=== PATIENT | female | born 1980 | race Caucasian/White ===

== ENCOUNTER 2016-11-26 10:01 | Emergency (ER) | payer SELFPAY ==
[2016-11-26] MEDS ORDERED: ONDANSETRON PF 4 MG/2 ML VIAL. IV ONE (10:30)
[2016-11-26] MEDS ORDERED: IV NORMAL SALINE 1000ML BAG 1,000 ML IV SCH (10:30)
[2016-11-26 10:39] LABS: BILIRUBIN,URINE NEGATIVE (NEG); GLUCOSE,URINE NEGATIVE (NEG); NITRITE,URINE NEGATIVE (NEG); PROTEIN,URINE 100 mg/dL (NEG-TRACE); UROBILINOGEN,URINE 0.2 mg/dL (0.2 mg/dL)
[2016-11-26 10:46] LABS: BASO % 0 % (0-3); EOS % 0 % (0-3); HEMATOCRIT 41.4 % (36.0-47.0); HEMOGLOBIN 14.2 g/dL (12.0-15.5); LYMPH # 1.3 x10^3/uL (1.0-4.8); LYMPH % 10 % (24-48); MEAN CORPUSCULAR HEMOGLOBIN 33 pg (25-35); MEAN CORPUSCULAR HGB CONC 34 g/dL (31-37); MEAN CORPUSCULAR VOLUME 95 fL (79-100); MONO % 10 % (0-9); NEUT % 80 % (31-73); PLATELET COUNT 424 x10^3/uL (140-400); RED BLOOD COUNT 4.35 x10^6/uL (3.50-5.40); RED CELL DISTRIBUTION WIDTH 12.7 % (11.5-14.5); WHITE BLOOD COUNT 13.6 x10^3/uL (4.0-11.0)
[2016-11-26 10:56] LABS: CALCIUM 10.3 mg/dL (8.5-10.1); CREATININE 0.7 mg/dL (0.6-1.0); GFR 95.2; POTASSIUM 3.5 mmol/L (3.5-5.1)
[2016-11-26 11:00] LABS: BACTERIA,URINE MANY /HPF (0-FEW); RBC,URINE 0 /HPF (0-2); SQUAMOUS EPITHELIAL CELL,UR FEW /LPF; WBC,URINE >40 /HPF (0-4)
[2016-11-26 11:01] LABS: ALBUMIN 3.3 g/dL (3.4-5.0); DIRECT BILIRUBIN 0.2 mg/dL (0.0-0.2); MAGNESIUM 2.5 mg/dL (1.8-2.4); TOTAL BILIRUBIN 0.6 mg/dL (0.2-1.0); TOTAL PROTEIN 8.4 g/dL (6.4-8.2)
--- NOTE | 2016-11-26 11:05 | PHYS DOC ---
Past Medical History Past Medical History: Other Additional Past Medical Histor: CHRONIC BACK PAIN,KIDNEY STONES,BREAST AUGMENTATION Past Surgical History: Alcohol Use: Occasionally Drug Use: None Adult General Chief Complaint Chief Complaint: ABDOMINAL PAIN HPI HPI Patient is a 36 year old female who presents with coming diarrhea. She states her symptoms started about 2 weeks ago and she thought she had a UTI and she took Bactrim from her joint about 4 doses of this and then she developed severe abdominal pain and felt like she is having a reaction from her Bactrim. She stopped that and her symptoms just about resolved until 5 days ago when she started having nausea vomiting and diarrhea. She states this morning she's had 4-5 loose stools and this last night checked about 8 nonbloody nonbilious episodes of vomiting. She states she has crampy abdominal pain that started from vomiting. She states she feels like she is just sore all over secondary to vomiting. She states last week she had a fever 102 however this morning is in the 99 range. She denies any allergies or any abdominal surgeries , she did have a but denies any vaginal discharge and is finishing her period. Review of Systems Review of Systems Constitutional: Denies fever or chills [] Eyes: Denies change in visual acuity, redness, or eye pain [] HENT: Denies nasal congestion or sore throat [] Respiratory: Denies cough or shortness of breath [] Cardiovascular: No additional information not addressed in HPI [] GI: Denies abdominal pain, bloody stools, positive for nausea, vomiting and diarrhea [] : Denies dysuria or hematuria [] Musculoskeletal: Denies back pain or joint pain [] Integument: Denies rash or skin lesions [] Neurologic: Denies headache, focal weakness or sensory changes [] Endocrine: Denies polyuria or polydipsia [] Current Medications Current Medications Current Medications Medications (Trade) Dose Ordered Sig/Whitley Start Time Stop Time Status Last Admin Dose Admin Ceftriaxone Sodium 50 ml @ 100 mls/hr 1X ONCE 11/26/16 12:30 11/26/16 12:59 DC 11/26/16 12:52 100 MLS/HR Fentanyl Citrate (Fentanyl 2ml Vial) 25 mcg PRN Q15MIN PRN 11/26/16 11:45 11/27/16 11:44 11/26/16 12:21 25 MCG Info (Do NOT chart on this entry -- for MONITORING) 1 each PRN DAILY PRN 11/26/16 12:45 11/28/16 12:44 Iohexol (Omnipaque 300 Mg/ml) 75 ml 1X ONCE 11/26/16 12:30 11/26/16 12:31 DC Ondansetron HCl (Zofran) 4 mg 1X ONCE 11/26/16 10:30 11/26/16 10:37 DC 11/26/16 10:46 4 MG Promethazine HCl 25 mg/Sodium Chloride 51 ml @ 101 mls/hr 1X ONCE 11/26/16 12:15 11/26/16 12:45 DC 11/26/16 12:15 101 MLS/HR Sodium Chloride 1,000 ml @ 1,000 mls/hr Q1H 11/26/16 10:30 11/26/16 11:54 DC 11/26/16 10:46 1,000 MLS/HR Allergies Allergies Allergies Coded Allergies Type Severity Reaction Last Updated Verified No Known Drug Allergies 11/26/16 No Physical Exam Physical Exam Constitutional: Well developed, well nourished, no acute distress, non-toxic appearance. [] HENT: Normocephalic, atraumatic, bilateral external ears normal, oropharynx moist, no oral exudates, nose normal. [] Eyes: PERRLA, EOMI, conjunctiva normal, no discharge. [] Neck: Normal range of motion, no tenderness, supple, no stridor. [] Cardiovascular:Heart rate regular rhythm, no murmur [] Lungs & Thorax: Bilateral breath sounds clear to auscultation [] Abdomen: Bowel sounds normal, soft, mild tender palpation diffusely, no rebound or guarding no masses, no pulsatile masses. [] Skin: Warm, dry, no erythema, no rash. [] Back: No tenderness, no CVA tenderness. [] Extremities: No tenderness, no cyanosis, no clubbing, ROM intact, no edema. [] Neurologic: Alert and oriented X 3, normal motor function, normal sensory function, no focal deficits noted. [] Psychologic: Affect normal, judgement normal, mood normal. [] Current Patient Data Vital Signs Vital Signs Date Time Temp Pulse Resp B/P (MAP) Pulse Ox O2 Delivery O2 Flow Rate FiO2 11/26/16 12:23 92 163/83 (109) 96 Room Air 11/26/16 10:19 99.6 16 99.6 Lab Values Laboratory Tests Test 11/26/16 09:26 11/26/16 10:13 11/26/16 10:30 POC Urine HCG, Qualitative Hcg negative (Negative) Urine Collection Type Unknown Urine Color [place] Urine Clarity Cloudy Urine pH 6.0 Urine Specific [place] 1.020 Urine Protein 100 mg/dL (NEG-TRACE) Urine Glucose (UA) Negative mg/dL (NEG) Urine Ketones (Stick) Negative mg/dL (NEG) Urine Blood Moderate (NEG) Urine Nitrite Negative (NEG) Urine Bilirubin Negative (NEG) Urine Urobilinogen Dipstick 0.2 mg/dL (0.2 mg/dL) Urine Leukocyte Esterase Moderate (NEG) Urine RBC 0 /HPF (0-2) Urine WBC >40 /HPF (0-4) Urine Squamous Epithelial Cells Few /LPF Urine Bacteria Many /HPF (0-FEW) White Blood Count 13.6 x10^3/uL (4.0-11.0) H Red Blood Count 4.35 x10^6/uL (3.50-5.40) Hemoglobin 14.2 g/dL (12.0-15.5) Hematocrit 41.4 % (36.0-47.0) Mean Corpuscular Volume 95 fL (79-100) Mean Corpuscular Hemoglobin 33 pg (25-35) Mean Corpuscular Hemoglobin Concent 34 g/dL (31-37) Red Cell Distribution Width 12.7 % (11.5-14.5) Platelet Count 424 x10^3/uL (140-400) H Neutrophils (%) (Auto) 80 % (31-73) H Lymphocytes (%) (Auto) 10 % (24-48) L Monocytes (%) (Auto) 10 % (0-9) H Eosinophils (%) (Auto) 0 % (0-3) Basophils (%) (Auto) 0 % (0-3) Neutrophils # (Auto) 10.9 x10^3uL (1.8-7.7) H Lymphocytes # (Auto) 1.3 x10^3/uL (1.0-4.8) Monocytes # (Auto) 1.4 x10^3/uL (0.0-1.1) H Eosinophils # (Auto) 0.0 x10^3/uL (0.0-0.7) Basophils # (Auto) 0.0 x10^3/uL (0.0-0.2) Segmented Neutrophils % 73 % (35-66) H Band Neutrophils % 3 % (0-9) Lymphocytes % 14 % (24-48) L Monocytes % 10 % (0-10) Platelet Estimate Increased (ADEQUATE) Sodium Level 142 mmol/L (136-145) Potassium Level 3.5 mmol/L (3.5-5.1) Chloride Level 99 mmol/L (98-107) Carbon Dioxide Level 31 mmol/L (21-32) Anion Gap 12 (6-14) Blood Urea Nitrogen 16 mg/dL (7-20) Creatinine 0.7 mg/dL (0.6-1.0) Estimated GFR (Cockcroft-Gault) 95.2 Glucose Level 102 mg/dL (70-99) H Calcium Level 10.3 mg/dL (8.5-10.1) H Magnesium Level 2.5 mg/dL (1.8-2.4) H Total Bilirubin 0.6 mg/dL (0.2-1.0) Direct Bilirubin 0.2 mg/dL (0.0-0.2) Aspartate Amino Transferase (AST) 18 U/L (15-37) Alanine Aminotransferase (ALT) 34 U/L (14-59) Alkaline Phosphatase 160 U/L (46-116) H Creatine Kinase 17 U/L (26-192) L Creatine Kinase MB (Mass) < 0.5 ng/mL (0.0-3.6) Creatine Kinase MB Relative Index % (0-4) Total Protein 8.4 g/dL (6.4-8.2) H Albumin 3.3 g/dL (3.4-5.0) L Lipase 229 U/L (73-393) Laboratory Tests 11/26/16 10:30 Laboratory Tests 11/26/16 10:30 EKG EKG [] Radiology/Procedures Radiology/Procedures [facility] [address] [place], [place] [id number] IMAGING REPORT Signed PATIENT: KLEBER RIDDLE ACCOUNT: [id number] : 1980 LOCATION: ER AGE: 36 SEX: F EXAM STATUS: REG ER ORD. PHYSICIAN: JAZZY IVERSON MD REASON: abd pain PROCEDURE: CT ABD PELV W/ IV CONTRST ONLY CT abdomen/pelvis with contrast 11/26/2016 at 1236 hours Indication: Abdominal pain and vomiting for 2 weeks. Comparison: None available Technique: Multiple axial CT images of the abdomen and pelvis were obtained after the administration of 75 mL Omnipaque 300 intravenously. Coronal and sagittal reformats are provided. Findings: Bilateral breast prostheses are present. Visualized portions of the lung bases are clear. Heart size is within normal limits. Liver is homogeneous without evidence for a focal mass. The spleen, bilateral adrenal glands, and pancreas are within normal limits. Gallbladder is contracted, limiting evaluation. The abdominal aorta is normal in course and caliber. There are no pathologically enlarged abdominal or pelvic lymph nodes. There is no free fluid within the abdomen or pelvis. There is no free intraperitoneal air. There is a striated and mildly delayed right nephrogram. There is mild to moderate right hydronephrosis with moderate distention of the distal ureter which appears patulous. There is mild urothelial enhancement of the proximal right ureter. No renal calculi are identified. The left kidney is normal in appearance Small and large bowel are normal in caliber. No evidence for bowel obstruction. Urinary bladder is within normal limits. Uterus and adnexa are within normal limits. Fluid changes are noted within the adnexa. No significant osseous abnormality is identified. Impression: Striated and delayed right nephrogram may be seen in the setting of pyelonephritis. Additionally, there is a patulous right ureter with suspected mild/moderate right hydroureteronephrosis. No definite obstructive lesion is identified. There is subtle urothelial enhancement suggestive of pyelitis. Further evaluation with a CT urogram on a nonemergent basis is recommended for detailed anatomical evaluation of the right ureter as findings could be congenital. Urologic consultation may be considered. Critical results were discussed with Dr. Iverson at 1:09 PM on 11/26/[address] Madden. [facility] Compliance Statement: One or more of the following individualized dose reduction techniques were utilized for this examination: 1. Automated exposure control 2. Adjustment of the mA and/or kV according to patient size 3. Use of iterative reconstruction technique DICTATED and SIGNED BY: ALANA MADDEN MD DATE: 11/26/16 2192 CC: JAZZY IVERSON MD; NO PCP ~ Impressions: Pyelonephritis Course & Med Decision Making Course & Med Decision Making Pertinent Labs and Imaging studies reviewed. (See chart for details) I offered the patient admission she does not want to be admitted. So we'll try to treat her Sulaiman as an outpatient. She being discharged with Levaquin for the next 10 days with Zofran and 12 tablets of Mullins for pain. She is to follow-up with [facility] urology was given the contact information. She was given a dose of Rocephin prior to leaving. She is agreeable to the plan and being discharged in stable condition at this time with return precautions. Dragon Disclaimer Dragon Disclaimer This electronic medical record was generated, in whole or in part, using a voice recognition dictation system. Departure Departure Impression: Primary Impression: Pyelonephritis Disposition: 01 HOME, SELF-CARE Condition: STABLE Referrals: NO PCP (PCP) Patient Instructions: Pyelonephritis, Adult Additional Instructions: You have a kidney infection and this is likely causing your abdominal pain in your nausea. I've offered her admission to the hospital but he rather go home. We will try to treat this as an outpatient. Your being discharged with 7 days of an antibiotic in addition to some nausea meds. He can use Mullins which is a narcotic pain medicine for your discomfort. Please don't drive or drink alcohol when taking this medicine. You can use Zofran which isn't antinausea medicine as needed for nausea. Please follow instructions on the prescription. If your pain gets worse she developed fevers we have other concerns please return back to emergency department. Will need to follow-up with urology. Please call [facility] urology at [phone]. They're located at [address] [place] [address] Scripts Hydrocodone/Apap 5-325 (NORCO 5-325 TABLET) 1 Each Tablet 1-2 TAB PO Q4-6HRS, #12 TAB Prov: JAZZY IVERSON MD 11/26/16 Ondansetron (ZOFRAN ODT) 4 Mg Tab.rapdis 1 TAB SL Q8HRS, #15 TAB Prov: JAZZY IVERSON MD 11/26/16 Levofloxacin (LEVAQUIN) 500 Mg Tablet 1 TAB PO DAILY, #10 TAB Prov: JAZZY IVERSON MD 11/26/16 JAZZY IVERSON MD Nov 26, 2016 11:05
[2016-11-26 11:13] LABS: CKMB MASS < 0.5 ng/mL (0.0-3.6); CREATINE KINASE 17 U/L (26-192)
[2016-11-26] MEDS: fentaNYL PF VIAL 100 MCG/2 ML VIAL IV PRN ×2 (11:47→12:21)
[2016-11-26] MEDS ORDERED: PROMETHAZINE 25 MG in IV NORMAL SALINE 50ML 50 ML IV ONE (12:15)
[2016-11-26] MEDS ORDERED: IOHEXOL 300 MG/ML 75 ML VIAL IV ONE (12:30)
[2016-11-26 12:39] LABS: PLT ESTIMATE INCREASED (ADEQUATE)
[2016-11-26] MEDS ORDERED: CONTRAST GIVEN MC PRN (12:45)
--- NOTE | 2016-11-26 13:12 | RAD ---
CT abdomen/pelvis with contrast 11/26/2016 at 1236 hours Indication: Abdominal pain and vomiting for 2 weeks. Comparison: None available Technique: Multiple axial CT images of the abdomen and pelvis were obtained after the administration of 75 mL Omnipaque 300 intravenously. Coronal and sagittal reformats are provided. Findings: Bilateral breast prostheses are present. Visualized portions of the lung bases are clear. Heart size is within normal limits. Liver is homogeneous without evidence for a focal mass. The spleen, bilateral adrenal glands, and pancreas are within normal limits. Gallbladder is contracted, limiting evaluation. The abdominal aorta is normal in course and caliber. There are no pathologically enlarged abdominal or pelvic lymph nodes. There is no free fluid within the abdomen or pelvis. There is no free intraperitoneal air. There is a striated and mildly delayed right nephrogram. There is mild to moderate right hydronephrosis with moderate distention of the distal ureter which appears patulous. There is mild urothelial enhancement of the proximal right ureter. No renal calculi are identified. The left kidney is normal in appearance Small and large bowel are normal in caliber. No evidence for bowel obstruction. Urinary bladder is within normal limits. Uterus and adnexa are within normal limits. Fluid changes are noted within the adnexa. No significant osseous abnormality is identified. Impression: Striated and delayed right nephrogram may be seen in the setting of pyelonephritis. Additionally, there is a patulous right ureter with suspected mild/moderate right hydroureteronephrosis. No definite obstructive lesion is identified. There is subtle urothelial enhancement suggestive of pyelitis. Further evaluation with a CT urogram on a nonemergent basis is recommended for detailed anatomical evaluation of the right ureter as findings could be congenital. Urologic consultation may be considered. Critical results were discussed with Dr. Mccarthy at 1:09 PM on 11/26/[address] Dawn. [facility] Compliance Statement: One or more of the following individualized dose reduction techniques were utilized for this examination: 1. Automated exposure control 2. Adjustment of the mA and/or kV according to patient size 3. Use of iterative reconstruction technique
[2016-11-26 13:30] VITALS: BP 155/80
[2016-11-26] MEDS ORDERED: ONDA4TAB10 SL (13:51)
[2016-11-26] MEDS ORDERED: HYDR-971 PO (13:51)
[2016-11-26] MEDS ORDERED: LEVO500T59 PO (13:51)
== END 2016-11-26 14:06 | disposition home or self-care (01) ==
LOC: ER 10:01
DX: N12 Tubulo-interstitial nephritis, not specified as acute or chronic (principal); G89.29 Other chronic pain; Z87.442 Personal history of urinary calculi; Z98.890 Other specified postprocedural states
CPT/HCPCS: 36415; 74177; 80048; 80076; 81001; 81025; 82553; 83690; 83735; 85007; 85025; 87086; 87186; 96365; 96366; 96368; 96375; 96376; 99285; J0690; J2405; J2550; J3010; J7030

== ENCOUNTER 2016-12-10 23:51 | Emergency (ER) | payer SELFPAY ==
[~2016-12-10] VITALS: Ht 170.2 cm; Wt 54.4 kg
[~2016-12-10 23:51] MED LIST: HYDR-971 PO; LEVO500T59 PO; ONDA4TAB10 SL
[2016-12-11 00:20] LABS: BASO # 0.1 x10^3/uL (0.0-0.2); BASO % 1 % (0-3); EOS % 1 % (0-3); HEMATOCRIT 41.6 % (36.0-47.0); HEMOGLOBIN 13.9 g/dL (12.0-15.5); LYMPH # 4.6 x10^3/uL (1.0-4.8); LYMPH % 54 % (24-48); MEAN CORPUSCULAR HEMOGLOBIN 32 pg (25-35); MEAN CORPUSCULAR HGB CONC 33 g/dL (31-37); MEAN CORPUSCULAR VOLUME 96 fL (79-100); MONO % 6 % (0-9); NEUT % 37 % (31-73); PLATELET COUNT 512 x10^3/uL (140-400); RED BLOOD COUNT 4.33 x10^6/uL (3.50-5.40); RED CELL DISTRIBUTION WIDTH 12.6 % (11.5-14.5); WHITE BLOOD COUNT 8.5 x10^3/uL (4.0-11.0)
[2016-12-11 00:22] LABS: BILIRUBIN,URINE NEGATIVE (NEG); GLUCOSE,URINE NEGATIVE (NEG); NITRITE,URINE NEGATIVE (NEG); PROTEIN,URINE NEGATIVE (NEG-TRACE); UROBILINOGEN,URINE 0.2 mg/dL (0.2 mg/dL)
[2016-12-11 00:41] LABS: CALCIUM 9.4 mg/dL (8.5-10.1); CREATININE 0.8 mg/dL (0.6-1.0); GFR 81.6; POTASSIUM 3.2 mmol/L (3.5-5.1)
[2016-12-11 00:42] LABS: BACTERIA,URINE FEW /HPF (0-FEW); SQUAMOUS EPITHELIAL CELL,UR MANY /LPF
[2016-12-11 00:47] LABS: ALBUMIN 4.5 g/dL (3.4-5.0); ALBUMIN/GLOBULIN RATIO 1.4 (1.0-1.7); TOTAL BILIRUBIN 0.6 mg/dL (0.2-1.0); TOTAL PROTEIN 7.7 g/dL (6.4-8.2)
[2016-12-11] MEDS ORDERED: IV NORMAL SALINE 1000ML BAG 1,000 ML IV ONE (01:00)
[2016-12-11 01:01] LABS: BARBITURATES NEG (NEG); BENZODIAZEPINES NEG (NEG); CANNABINOIDS POS (NEG); COCAINE NEG (NEG); METHADONE NEG (NEG); OPIATES POS (NEG); PHENCYCLIDINE NEG (NEG)
--- NOTE | 2016-12-11 01:27 | PHYS DOC ---
Past Medical History Past Medical History: UTI Additional Past Medical Histor: CHRONIC BACK PAIN,KIDNEY STONES,BREAST AUGMENTATION Past Surgical History: , Other Additional Past Surgical Histo: Breast augmentation, melanom removal Alcohol Use: Occasionally Drug Use: None Adult General Chief Complaint Chief Complaint: ABDOMINAL PAIN HPI HPI 36-year-old female with a one-month history of chronic nausea and vomiting now presents to the emergency department after an episode of syncope. Patient states she was seen on 26 November complaining of back pain. She was diagnosed with pyelonephritis and referred to a urologist and patient did not follow-up with urologist. She was prescribed Levaquin to which the Escherichia coli identified on the culture was sensitive, however she presented to another medical professional at some point he switched her antibiotic to Augmentin which her urine culture also reflected sensitivity to patient has no fevers chills sweats or shaking chills. She does have persistent daily nausea with multiple episodes of vomiting yesterday however she states that improved today. Just prior to arrival while patient was standing at her house she states she developed tunnel vision and then fainted. Patient was hyperventilating on arrival in the emergency department but is now feeling improved. She denies having a history of anxiety and denies drug use. She has no cardiac history Review of Systems Review of Systems Constitutional: Denies fever or chills [] Eyes: Denies change in visual acuity, redness, or eye pain [] HENT: Denies nasal congestion or sore throat [] Respiratory: Denies cough or shortness of breath [] Cardiovascular: No additional information not addressed in HPI [] GI: Denies abdominal pain, nausea, vomiting, bloody stools or diarrhea [] : Denies dysuria or hematuria [] Musculoskeletal: Denies back pain or joint pain [] Integument: Denies rash or skin lesions [] Neurologic: Denies headache, focal weakness or sensory changes [] Endocrine: Denies polyuria or polydipsia [] Current Medications Current Medications Current Medications Medications (Trade) Dose Ordered Sig/Whitley Start Time Stop Time Status Last Admin Dose Admin Potassium Chloride (Klor-Con) 40 meq 1X ONCE 12/11/16 02:45 12/11/16 02:46 DC Sodium Chloride 1,000 ml @ 125 mls/hr 1X ONCE 12/11/16 01:00 12/11/16 08:59 12/11/16 01:03 125 MLS/HR Allergies Allergies Allergies Coded Allergies Type Severity Reaction Last Updated Verified No Known Drug Allergies 11/26/16 No Physical Exam Physical Exam Anxious-appearing 36-year-old female with mildly pressured speech in no acute distress. Normocephalic atraumatic mucous membranes mildly dry. No tachycardia clear lungs regular rate and rhythm no arrhythmia normal sinus rhythm. Mild right CVA tenderness. Benign abdomen.no guarding or rebound. Normal extremities nonfocal neuro exam Constitutional: Well developed, well nourished, no acute distress, non-toxic appearance. [] HENT: Normocephalic, atraumatic, bilateral external ears normal, oropharynx moist, no oral exudates, nose normal. [] Eyes: PERRLA, EOMI, conjunctiva normal, no discharge. [] Neck: Normal range of motion, no tenderness, supple, no stridor. [] Cardiovascular:Heart rate regular rhythm, no murmur [] Lungs & Thorax: Bilateral breath sounds clear to auscultation [] Abdomen: Bowel sounds normal, soft, no tenderness, no masses, no pulsatile masses. [] Skin: Warm, dry, no erythema, no rash. [] Back: No tenderness, no CVA tenderness. [] Extremities: No tenderness, no cyanosis, no clubbing, ROM intact, no edema. [] Neurologic: Alert and oriented X 3, normal motor function, normal sensory function, no focal deficits noted. [] Psychologic: Mildly anxious appearing, judgement normal, mood normal. [] Current Patient Data Vital Signs Vital Signs Date Time Temp Pulse Resp B/P (MAP) Pulse Ox O2 Delivery O2 Flow Rate FiO2 12/11/16 02:00 101 16 100/61 (74) 98 Room Air 12/11/16 00:10 97.6 97.6 Lab Values Laboratory Tests Test 12/11/16 00:06 12/11/16 00:08 12/11/16 00:10 12/11/16 00:11 Glucose (Fingerstick) 131 mg/dL (70-99) H White Blood Count 8.5 x10^3/uL (4.0-11.0) Red Blood Count 4.33 x10^6/uL (3.50-5.40) Hemoglobin 13.9 g/dL (12.0-15.5) Hematocrit 41.6 % (36.0-47.0) Mean Corpuscular Volume 96 fL (79-100) Mean Corpuscular Hemoglobin 32 pg (25-35) Mean Corpuscular Hemoglobin Concent 33 g/dL (31-37) Red Cell Distribution Width 12.6 % (11.5-14.5) Platelet Count 512 x10^3/uL (140-400) H Neutrophils (%) (Auto) 37 % (31-73) Lymphocytes (%) (Auto) 54 % (24-48) H Monocytes (%) (Auto) 6 % (0-9) Eosinophils (%) (Auto) 1 % (0-3) Basophils (%) (Auto) 1 % (0-3) Neutrophils # (Auto) 3.2 x10^3uL (1.8-7.7) Lymphocytes # (Auto) 4.6 x10^3/uL (1.0-4.8) Monocytes # (Auto) 0.5 x10^3/uL (0.0-1.1) Eosinophils # (Auto) 0.1 x10^3/uL (0.0-0.7) Basophils # (Auto) 0.1 x10^3/uL (0.0-0.2) Sodium Level 141 mmol/L (136-145) Potassium Level 3.2 mmol/L (3.5-5.1) L Chloride Level 103 mmol/L (98-107) Carbon Dioxide Level 28 mmol/L (21-32) Anion Gap 10 (6-14) Blood Urea Nitrogen 17 mg/dL (7-20) Creatinine 0.8 mg/dL (0.6-1.0) Estimated GFR (Cockcroft-Gault) 81.6 BUN/Creatinine Ratio 21 (6-20) H Glucose Level 139 mg/dL (70-99) H Calcium Level 9.4 mg/dL (8.5-10.1) Total Bilirubin 0.6 mg/dL (0.2-1.0) Aspartate Amino Transferase (AST) 13 U/L (15-37) L Alanine Aminotransferase (ALT) 19 U/L (14-59) Alkaline Phosphatase 67 U/L (46-116) Troponin I Quantitative < 0.017 ng/mL (0.000-0.055) Total Protein 7.7 g/dL (6.4-8.2) Albumin 4.5 g/dL (3.4-5.0) Albumin/Globulin Ratio 1.4 (1.0-1.7) Lipase 315 U/L (73-393) Thyroid Stimulating Hormone (TSH) 3.767 uIU/mL (0.358-3.74) H Urine Collection Type Unknown Urine Color Yellow Urine Clarity Cloudy Urine pH 6.0 Urine Specific [place] 1.010 Urine Protein Negative mg/dL (NEG-TRACE) Urine Glucose (UA) Negative mg/dL (NEG) Urine Ketones (Stick) Negative mg/dL (NEG) Urine Blood Trace (NEG) Urine Nitrite Negative (NEG) Urine Bilirubin Negative (NEG) Urine Urobilinogen Dipstick 0.2 mg/dL (0.2 mg/dL) Urine Leukocyte Esterase Negative (NEG) Urine RBC 3-5 /HPF (0-2) Urine WBC 1-4 /HPF (0-4) Urine Squamous Epithelial Cells Many /LPF Urine Bacteria Few /HPF (0-FEW) Urine Hyaline Casts Occasional /HPF Urine Opiates Screen Pos (NEG) Urine Methadone Screen Neg (NEG) Urine Barbiturates Neg (NEG) Urine Phencyclidine Screen Neg (NEG) Urine Amphetamine/Methamphetamine Neg (NEG) Urine Benzodiazepines Screen Neg (NEG) Urine Cocaine Screen Neg (NEG) Urine Cannabinoids Screen Pos (NEG) Urine Ethyl Alcohol Pos (NEG) POC Urine HCG, Qualitative Hcg negative (Negative) Laboratory Tests 12/11/16 00:08 Laboratory Tests 12/11/16 00:08 EKG EKG Normal sinus rhythm at 80 normal axis no STEMI interpreted by me.[] Radiology/Procedures Radiology/Procedures Chest x-ray no acute disease normal mediastinum no mass interpreted by me Course & Med Decision Making Course & Med Decision Making Pertinent Labs and Imaging studies reviewed. (See chart for details) Patient with chronic nausea and vomiting. Now status post episode of syncope prior to arrival. Patient appears to have a clearly contributory anxiety component and was hyperventilating on arrival to the emergency department. Suspect hyperventilation syncope with possible contributory etiology of mild dehydration. chronic nausea and vomiting ,possible event was precipitated by vasovagal trigger. She is well-appearing on M.D. exam. No tachycardia or arrhythmia. Chest x-ray unremarkable w/ no mediastinal mass. Potassium mildly low at 3.2. BUN/creatinine ratio consistent with mild dehydration. TSH borderline abnormal however not statistically significant. Patient positive for marijuana and alcohol. Suspect possibility of marijuana cyclic vomiting syndrome as etiology for patient's chronic nausea and vomiting. She stable in the emergency department, no further workup or treatment indicated. Patient agrees with outpatient follow-up and strict return precautions given. Patient offered Zofran prescription however she states she does not want this because " it gives me nosebleeds. " [] Dragon Disclaimer Dragon Disclaimer This electronic medical record was generated, in whole or in part, using a voice recognition dictation system. Departure Departure Impression: Primary Impression: Chronic nausea Additional Impressions: Syncope Dehydration Marijuana use Alcohol use Hyperventilation syndrome Disposition: HOME, SELF-CARE Condition: IMPROVED Referrals: NO PCP (PCP) Patient Instructions: Dehydration, Adult, Marijuana Abuse-Brief, Syncope Additional Instructions: It appears that your episode of fainting tonight had multiple potential contributory causes. Your chronic nausea and vomiting have caused you to be mildly dehydrated which we've addressed with IV fluids. Your heart rhythm was normal tonight and does not show any signs of irregularity. You have alcohol in your system tonight and this typically contributes to a dehydrated state. You are also positive for marijuana. Be aware that marijuana use can result in a chronic syndrome of nausea and vomiting. If you have been an ongoing marijuana user this could very well account for your chronic symptoms. This is sometimes called marijuana cyclic vomiting syndrome and is a very well documented phenomena. Even people that have used marijuana for many years without complication sometimes evolve these symptoms. The best thing to do is abstain from marijuana use and see if this helps your chronic nausea and vomiting. Your potassium was mildly low tonight at 3.2 and this has been supplemented with a pill you been given. Your thyroid stimulating hormone was borderline abnormal at 3.76. This is just above the upper limit of normal and it is less likely that this result is statistically significant. That is, you could not be diagnosed with hypothyroidism from this value alone but it would be pinzon to follow-up with your doctor, discuss this value and arrange repeat evaluation at some point in the future. Rest and drink plenty of fluids and follow-up with your doctor tomorrow. Problem Qualifiers TYE OSCAR MD Dec 11, 2016 01:27
[2016-12-11] MEDS ORDERED: POTASSIUM CHLORIDE 20 MEQ TABLET.ER. PO ONE (02:45)
[2016-12-11 03:11] VITALS: BP 110/73
--- NOTE | 2016-12-11 08:03 | RAD ---
AP portable chest radiograph 12/11/2016 Clinical History: Syncope. An AP portable erect digital radiograph of the chest was obtained. No previous studies are available for comparison. The cardiac and mediastinal silhouettes within normal limits in size and configuration. No acute pulmonary infiltrate is seen. No pleural effusion or pneumothorax is noted. Very mild S-shaped curvature of the thoracolumbar spine is seen. Impression: No acute abnormality is seen.
--- NOTE | 2016-12-11 11:42 | EKG ---
[facility] [address] [place] [address] Test Date: 2016-12-11 Test Time: 00:47:37 Pat Name: KLEBER RIDDLE Department: Room: Gender: F [employer]: : 1980 Requested By: TYE OSCAR Order Number: [id number] Reading MD: Ava Pickett Measurements Intervals [place] Rate: 80 P: 41 NV: 136 QRS: 61 QRSD: 82 T: 65 QT: 374 QTc: 435 Interpretive Statements SINUS RHYTHM INCOMPLETE RIGHT BUNDLE BRANCH BLOCK Electronically Signed On 12-13-2016 11:50:30 CDT by Ava Pickett
== END 2016-12-11 03:19 | disposition home or self-care (01) ==
LOC: ER 23:51
DX: R11.2 Nausea with vomiting, unspecified (principal); R55 Syncope and collapse; E86.0 Dehydration; F12.90 Cannabis use, unspecified, uncomplicated; F45.8 Other somatoform disorders; F10.10 Alcohol abuse, uncomplicated; G89.29 Other chronic pain; F41.9 Anxiety disorder, unspecified; Z87.442 Personal history of urinary calculi
CPT/HCPCS: 36415; 71010; 80053; 80307; 81001; 81025; 82962; 83690; 84443; 84484; 85025; 93005; 96360; 96361; 99285; J7030; G0479

== ENCOUNTER 2019-12-12 17:33 | Emergency (ER) | payer SELFPAY ==
[~2019-12-12] VITALS: Ht 170.2 cm; Wt 56.0 kg
[~2019-12-12 17:33] MED LIST changes: +HYDR-3164 PO; -HYDR-971 PO
[2019-12-12 17:52] VITALS: BP 145/99
--- NOTE | 2019-12-12 19:49 | RAD ---
Left foot x-rays 3 views HISTORY: Left foot pain. FINDINGS: No fracture or dislocation. Small enthesophyte Achilles tendon insertion at the calcaneus. Soft tissues unremarkable. IMPRESSION: No acute osseous injury. Electronically signed by: Sherwin Curiel MD (12/12/2019 7:46 PM) [facility]
[2019-12-12] MEDS ORDERED: HYDR-3164 PO (20:00)
--- NOTE | 2019-12-12 20:00 | PHYS DOC ---
Past Medical History Past Medical History: UTI Additional Past Medical Histor: CHRONIC BACK PAIN,KIDNEY STONES,BREAST AUGMENTATION Past Surgical History: , Other Additional Past Surgical Histo: Breast augmentation, melanom removal Smoking Status: Never Smoker Alcohol Use: Occasionally Drug Use: None General Adult EDM: Chief Complaint: FOOT INJURY PAIN HPI: HPI: Patient is a 39 year old female who presents the ED today complaining of moderate pain to the left fifth toe that began yesterday after she bumped her left foot on her daughter while playing. Patient states the pain is worse on weightbearing. Denies anything specifically relieving the pain. Describes the pain as sharp and constant. Review of Systems: Review of Systems: Constitutional: Denies fever or chills. [] Musculoskeletal: Reports left fifth toe pain Integument: Denies rash. [] Neurologic: Denies headache, focal weakness or sensory changes. [] Psychiatric: Denies depression or anxiety. [] Heart Score: Risk Factors: Risk Factors: DM, Current or recent (<one month) smoker, HTN, HLP, family history of CAD, obesity. Risk Scores: Score 0 - 3: 2.5% MACE over next 6 weeks - Discharge Home Score 4 - 6: 20.3% MACE over next 6 weeks - Admit for Clinical Observation Score 7 - 10: 72.7% MACE over next 6 weeks - Early Invasive Strategies Allergies: Allergies: Allergies Coded Allergies Type Severity Reaction Last Updated Verified No Known Drug Allergies 11/26/16 No Physical Exam: PE: Constitutional: Well developed, well nourished, no acute distress, non-toxic appearance. [] Skin: Warm, dry, no erythema, no rash. [] Back: No tenderness, no CVA tenderness. [] Extremities: Left fifth toe with bruising on the ventral aspect. Tenderness on palpation of the left fifth toe. Limited range of motion to the left fifth toe due to pain. +2 left pedal pulse. Cap refill less than 2 seconds in left foot. Neurologic: Alert and oriented X 3, normal motor function, normal sensory function, no focal deficits noted. [] Psychologic: Affect normal, judgement normal, mood normal. [] Current Patient Data: Vital Signs: Vital Signs Date Time Temp Pulse Resp B/P (MAP) Pulse Ox O2 Delivery O2 Flow Rate FiO2 12/12/19 17:52 97.8 97 18 145/99 (114) 98 Room Air 97.8 EKG: EKG: [] Radiology/Procedures: Radiology/Procedures: [] Course & Med Decision Making: Course & Med Decision Making Pertinent Labs and Imaging studies reviewed. (See chart for details) This is a 39-year-old female patient presenting to the ED today with left foot pain after hitting her foot on the daughter. Left foot x-rays were noted for left fifth toe mid phalanx fracture. Left fifth toe clarissa taped to the left fourth toe and provided orthopedic shoe by field service tech, neurovascular exam is intact. D/c to home. F/u with Ortho Dragon Disclaimer: Dragon Disclaimer: This electronic medical record was generated, in whole or in part, using a voice recognition dictation system. Departure Departure Impression: Primary Impression: Toe fracture, left Qualified Codes: S92.525A - Nondisplaced fracture of middle phalanx of left lesser toe(s), initial encounter for closed fracture Disposition: HOME, SELF-CARE Condition: STABLE Referrals: NO PCP (PCP) SEFERINO FLOYD MD follow up in one week Patient Instructions: Toe Fracture with [facility] Additional Instructions: You broke your left fifth toe. Try to ice and elevate the extremity. Follow-up with orthopedic doctor provided in a week. Take the pain medicine as needed for pain Scripts Hydrocodone/Apap 5-325 (NORCO 5-325 TABLET) 1 Each Tablet 1 TAB PO Q6HRS, #12 TAB Prov: DARRYL NEWTON APRN 12/12/19 Justicifation of Admission Dx: Justifications for Admission: Justification of Admission Dx: N/A DARRYL NEWTON APRN Dec 12, 2019 20:00
== END 2019-12-12 20:32 | disposition home or self-care (01) ==
LOC: ER 17:33
DX: S92.525A Nondisplaced fracture of middle phalanx of left lesser toe(s), initial encounter for closed fracture (principal); M79.672 Pain in left foot; G89.29 Other chronic pain; Z98.890 Other specified postprocedural states; W18.39XA Other fall on same level, initial encounter; Y93.89 Activity, other specified; Y92.89 Other specified places as the place of occurrence of the external cause; Y99.8 Other external cause status
CPT/HCPCS: 73630; 99283